=== PATIENT | male | born 1945 | race Two or more races ===

== ENCOUNTER → 2022-11-21 | Outpatient (CLI) | payer OTHER | END | disposition home or self-care (01) | LOC: SONOGRAMA 13:13 | DX: M25.562 Pain in left knee (principal) ==

== ENCOUNTER 2024-10-29 12:45 | Emergency (ER) | payer OTHER ==
[~2024-10-29] VITALS: Ht 172.7 cm; Wt 72.6 kg
[2024-10-29] MEDS ORDERED: KETOROLAC TROMETHAMINE 15 MG VIAL IM STA (15:02)
== END 2024-10-29 17:00 | disposition home or self-care (01) ==
LOC: ER 12:58
DX: R51.9 Headache, unspecified (principal)
CPT/HCPCS: 96372; 99282; J1885